=== PATIENT | female | born 1935 | race Caucasian/White ===

== ENCOUNTER → 2017-05-26 | Outpatient (CLI) | payer MEDICARE, BC ==
[2017-05-26 12:52] LABS: INR 1.5 (<1.2); Prothrombin Time 14.2 sec (9.0-12.0)
== END | disposition home or self-care (01) ==
LOC: LABWHC1 12:06
DX: I26.92 Saddle embolus of pulmonary artery without acute cor pulmonale (principal); I26.99 Other pulmonary embolism without acute cor pulmonale; Z79.01 Long term (current) use of anticoagulants
CPT/HCPCS: 36415; 85610